=== PATIENT | male | born 1980 | race Caucasian/White ===

== ENCOUNTER 2017-03-07 07:32 | Emergency (ER) | payer OTHER ==
[~2017-03-07] VITALS: Ht 175.3 cm; Wt 63.6 kg
[2017-03-07] MEDS ORDERED: ELVI1TAB3 PO (07:35)
[2017-03-07] MEDS ORDERED: HYDROCODONE/ACETAMINOPHEN 5-325 MG TABLET PO ONE (08:00)
[2017-03-07] MEDS ORDERED: POVIDONE-IODINE 10% 120 ML SOLUTION TP ONE (08:15)
[2017-03-07] MEDS ORDERED: LIDOCAINE HCL 1% 10 ML VIAL INJ ONE (08:15)
[2017-03-07 09:24] VITALS: BP 122/73
[2017-06-28] MEDS ORDERED: HIV MEDS PO (09:10)
[2017-07-02] MEDS ORDERED: PANT40TA25 PO ×2 (11:23→11:24)
[2017-07-02] MEDS ORDERED: PROP10TA73 PO (11:25)
[2017-07-02] MEDS ORDERED: FERR325T24 PO (11:27)
== END 2017-03-07 09:43 | disposition short-term general hospital (02) ==
LOC: EMS 07:34
DX: S62.616A Displaced fracture of proximal phalanx of right little finger, initial encounter for closed fracture (principal); S62.612A Displaced fracture of proximal phalanx of right middle finger, initial encounter for closed fracture; S62.614A Displaced fracture of proximal phalanx of right ring finger, initial encounter for closed fracture; S40.211A Abrasion of right shoulder, initial encounter; S80.211A Abrasion, right knee, initial encounter; V19.9XXA Pedal cyclist (driver) (passenger) injured in unspecified traffic accident, initial encounter; Y93.89 Activity, other specified; Y92.89 Other specified places as the place of occurrence of the external cause; Y99.8 Other external cause status
CPT/HCPCS: 26725; 73130; 99285; J3490